=== PATIENT | female | born 1990 | race Caucasian/White ===

== ENCOUNTER 2021-08-20 07:53 | Emergency (ER) | payer MEDICAID ==
[~2021-08-20] VITALS: Ht 152.4 cm; Wt 75.0 kg
[2021-08-20] MEDS ORDERED: HALOPERIDOL 5MG TABLET PO ONE (08:15)
[2021-08-20] MEDS ORDERED: HALOPERIDOL LACTATE 5MG/ML VIAL IM STA (08:31)
[2021-08-20] MEDS ORDERED: LORAZEPAM 2MG/ML CPJ IM STA (08:31)
[2021-08-20] MEDS ORDERED: DIPHENHYDRAMINE 50MG/ML VIAL IM STA (08:31)
[2021-08-20 08:35] LABS: CLARITY URINE CLEAR (CLEAR); COLOR URINE YELLOW (YELLOW); KETONES URINE NEGATIVE (NEGATIVE); LEUKOCYTE ESTERASE URINE NEGATIVE (NEGATIVE); NITRITE URINE NEGATIVE (NEGATIVE); OCCULT BLOOD URINE NEGATIVE (NEGATIVE); PH URINE >=9.0 (4.5-8.0); PROTEIN URINE NEGATIVE (NEGATIVE); SPECIFIC GRAVITY URINE 1.016 (1.005-1.030); UROBILINOGEN URINE 0.2 E.U./dL (0.2-1.0)
[2021-08-20 08:47] LABS: *BARBITURATES SCREEN URINE NEGATIVE (NEGATIVE)
[2021-08-20 08:48] LABS: *BENZODIAZEPINES SCREEN URINE NEGATIVE (NEGATIVE); *COCAINE SCREEN URINE NEGATIVE (NEGATIVE); METHADONE URINE SCREEN NEGATIVE (NEGATIVE); OPIATES URINE SCREEN NEGATIVE (NEGATIVE); PHENCYCLIDINE URINE SCREEN NEGATIVE (NEGATIVE)
[2021-08-20 08:49] LABS: *AMPHETAMINES SCREEN URINE PRESUMTIVE POSITIVE (NEGATIVE); CANNABINOID URINE SCREEN PRESUMTIVE POSITIVE (NEGATIVE)
[2021-08-20 09:22] LABS: BASOPHILS % 0.3 % (0.0-2.0); EOSINOPHILS % 0.1 % (0.0-5.0); HEMATOCRIT. 44.8 % (36.0-48.0); HEMOGLOBIN. 15.3 g/dL (12.0-16.0); LYMPHOCYTES % 11.9 % (20.0-50.0); MEAN CORPUSCULAR HEMOGLOBIN 27.1 pg (28.0-32.0); MEAN CORPUSCULAR VOLUME 79.6 fL (81.0-99.0); MEAN PLATELET VOLUME 8.2 fl (7.4-10.4); MONOCYTES % 6.5 % (2.0-8.0); NEUTROPHILS % 81.2 % (40.0-76.0); PLATELET 209 x1000/uL (130-400); RED BLOOD CELL COUNT 5.63 mill/uL (4.2-5.4); RED CELL DISTRIBUTION WIDTH 17.8 % (11.6-14.6)
[2021-08-20 09:31] LABS: CHLORIDE 103 mEq/L (98-107)
[2021-08-20 09:37] LABS: ETHANOL BLOOD < 10 mg/dL
[2021-08-20 09:41] LABS: CREATINE KINASE 967 IU/L (26-192); HCG SCREEN NEGATIVE
[2021-08-20 12:00] VITALS: BP 118/69
== END 2021-08-20 16:52 | disposition home or self-care (01) ==
LOC: ER 08:12
DX: F29 Unspecified psychosis not due to a substance or known physiological condition (principal); I10 Essential (primary) hypertension
CPT/HCPCS: 36415; 80053; 80305; 80307; 80320; 80329; 81003; 82140; 82550; 83690; 84443; 84703; 85025; 93005; 96372; 99284; J1200; J1630; J2060; Z7610; G0480

== ENCOUNTER 2021-08-20 17:13 | Emergency (ER) | payer MEDICAID ==
[~2021-08-20] VITALS: Ht 152.4 cm; Wt 64.0 kg
[2021-08-20 17:25] VITALS: BP 106/67
[2021-08-20] MEDS ORDERED: AMOXICILLIN/POTASSIUM CLAVULANATE 875/125MG TAB PO ONE (21:30)
[2021-08-20] MEDS ORDERED: ACETAMINOPHEN 325MG TABLET PO ONE (21:30)
== END 2021-08-20 22:23 | disposition home or self-care (01) ==
LOC: ER 17:13
DX: F15.90 Other stimulant use, unspecified, uncomplicated (principal); I10 Essential (primary) hypertension; Z59.00 Homelessness unspecified; Z86.59 Personal history of other mental and behavioral disorders
CPT/HCPCS: 81025; 99282